=== PATIENT | male | born 1970 | race Two or more races ===

== ENCOUNTER 2017-12-18 15:36 | Inpatient (IN) | payer OTHER ==
[~2017-12-18] VITALS: Ht 177.8 cm; Wt 61.7 kg
[2017-12-21] MEDS ORDERED: XARELTO10 MG PO (09:00)
== END 2017-12-21 15:12 | disposition home or self-care (01) | DRG 482 ==
LOC: ER 15:36 → SURH 12-19 12:56 → O/R 12-19 12:56 → SURH 12-19 15:34
PROVIDERS: Orthopaedic Surgery
PROC: 0QS704Z Reposition Left Upper Femur with Internal Fixation Device, Open Approach (ICD-10-PCS; principal; 2017-12-19 16:00)
DX: S72.092A Other fracture of head and neck of left femur, initial encounter for closed fracture (principal); V00.831A Fall from motorized mobility scooter, initial encounter; Y93.89 Activity, other specified; Y92.89 Other specified places as the place of occurrence of the external cause; Y99.8 Other external cause status

== ENCOUNTER 2018-01-18 13:10 | Outpatient (CLI) | payer OTHER ==
[~2018-01-18 13:10] MED LIST: XARELTO10 MG PO
== END 2018-01-18 13:25 | disposition home or self-care (01) ==
LOC: RAD 501 13:10
DX: S72.012D Unspecified intracapsular fracture of left femur, subsequent encounter for closed fracture with routine healing (principal)

== ENCOUNTER 2018-02-06 15:04 | Outpatient (CLI) | payer OTHER | END 2018-02-06 15:12 | disposition home or self-care (01) | LOC: RAD 501 15:04 | DX: S72.012D Unspecified intracapsular fracture of left femur, subsequent encounter for closed fracture with routine healing (principal) ==

== ENCOUNTER 2018-03-08 12:52 | Outpatient (CLI) | payer OTHER | END 2018-03-08 13:01 | disposition home or self-care (01) | LOC: RAD 12:52 | DX: S72.012D Unspecified intracapsular fracture of left femur, subsequent encounter for closed fracture with routine healing (principal) ==

== ENCOUNTER 2018-05-09 10:59 | Outpatient (CLI) | payer OTHER | END 2018-05-09 11:09 | disposition home or self-care (01) | LOC: RAD 501 10:59 | DX: S72.012D Unspecified intracapsular fracture of left femur, subsequent encounter for closed fracture with routine healing (principal) ==

== ENCOUNTER 2018-07-14 08:54 | Outpatient (CLI) | payer OTHER | END 2018-07-14 09:09 | disposition home or self-care (01) | LOC: LAB 08:54 | DX: E21.2 Other hyperparathyroidism (principal); E88.89 Other specified metabolic disorders; D81.89 Other combined immunodeficiencies; E56.1 Deficiency of vitamin K; E55.9 Vitamin D deficiency, unspecified; M85.88 Other specified disorders of bone density and structure, other site ==

== ENCOUNTER 2019-11-08 13:55 | Outpatient (CLI) | payer OTHER | END 2019-11-08 14:10 | disposition home or self-care (01) | LOC: RAD 13:55 | PROVIDERS: ATTEND Orthopaedic Surgery | DX: M79.642 Pain in left hand (principal); M79.645 Pain in left finger(s) ==